=== PATIENT | female | born 1990 | race Caucasian/White ===

== ENCOUNTER 2016-10-09 15:31 | Emergency (ER) | payer BC | END 2016-10-09 17:15 | disposition home or self-care (01) | LOC: ER 15:31 | DX: N39.0 Urinary tract infection, site not specified (principal); Z88.0 Allergy status to penicillin ==

== ENCOUNTER 2016-10-14 16:04 | Emergency (ER) | payer BC | END 2016-10-14 17:40 | disposition home or self-care (01) | LOC: ER 16:04 | DX: M54.5 Low back pain (principal); Z88.0 Allergy status to penicillin | CPT/HCPCS: 36415; 96374; 96375; J1885 ==